=== PATIENT | female | born 1950 | race Caucasian/White ===

== ENCOUNTER 2016-10-02 12:35 | Emergency (ER) | payer MEDICARE ==
--- NOTE | 2016-10-02 14:39 | Emergency Department Record ---
History of Present Illness - General Chief Complaint: Headache Migraine Stated Complaint: MONTANO PAIN Time Seen by Provider: 10/02/16 14:32 Source: Patient Mode of Arrival: Ambulatory Limitations: No limitations - History of Present Illness Initial Comments: 66 yo female presents with 3 weeks of symptoms of pain in the left neck posteriorly with movement. She states it came on after kayaking. the pain is sharp and goes from the base of the skull down the neck to the right shoulder. She saw her PCP. She was prescribed Ativan. She saw her chiropractor as well. New has improved the symptoms. She has developed a numb feeling over the upper left anterior shoulder. 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 No vision changes. No rash. No prior neck surgery. MD Complaint: Headache, Other Onset/Timin -: Week(s) Onset Description: Gradual Location: Neck Severity: Mild Severity scale (1-10): 4 Quality: Aching Consistency: Constant, Intermittent Improves With: Nothing Worsens With: Sitting/standing Associated Symptoms: Other Treatments Prior to Arrival: None - Related Data Home Medications Medication Instructions Recorded Confirmed Last Taken Thyroid,Pork [[place] Thyroid] 60 mg PO DAILY tab 08/11/15 10/02/16 Unknown Previous Rx's Medication Instructions Recorded Diazepam [Valium] 5 mg PO Q8H #15 tab 10/02/16 Hydrocodone/Acetaminophen [Todd 1 each PO Q6H PRN #15 tablet 10/02/16 5-325 Tablet] Methylprednisolone [Medrol Dose 4 mg PO DAILY #1 tab.ds.pk 10/02/16 Pack] Allergies Allergy/AdvReac Type Severity Reaction Status Date / Time morphine [MORPHINE] Allergy Unknown Unverified 08/11/15 19:20 Sulfa (Sulfonamide Allergy Unknown Unverified 08/11/15 19:20 Antibiotics) [SULFA (SULFONAMIDE ANTIBIOTICS)] Travel Screening - Travel/Exposure Within Last 30 Days Have you traveled within the last 30 days?: No Review of Systems Constitutional: Denies: Chills, Fever, Weakness Eyes: Denies: Eye discharge ENT: Denies: Congestion, Throat pain Respiratory: Denies: Cough, Dyspnea, Wheezes Cardiovascular: Denies: Chest pain, Palpitations, Syncope Endocrine: Denies: Fatigue, Polydipsia, Polyuria Gastrointestinal: Denies: Abdominal pain, Diarrhea, Nausea, Vomiting Genitourinary: Denies: Dysuria, Urgency Musculoskeletal: Reports: Neck pain. Denies: Arthralgia, Back pain Skin: Denies: Bruising, Change in color, Rash Neurological: Reports: Headache, Numbness, Tingling. Denies: Abnormal gait, Confusion, Seizure, Vertigo, Weakness Psychiatric: Denies: Anxiety Hematological/Lymphatic: Denies: Anemia, Blood Clots, Easy bleeding, Easy bruising, Swollen glands Past Medical History - SOCIAL HISTORY Smoking Status: Never smoker Alcohol Use: Occassional Drug Use Detail:: Marijuana - RESPIRATORY Hx Respiratory Disorders: No - CARDIOVASCULAR Hx Cardio Disorders: No - NEURO Hx Neuro Disorders: No - GI Hx GI Disorders: No - Hx Genitourinary Disorders: No - ENDOCRINE Hx Endocrine Disorders: Yes Hx Thyroid Disease: Yes - MUSCULOSKELETAL Hx Musculoskeletal Disorders: Yes Hx Arthritis: Yes - PSYCH Hx Psych Problems: No - HEMATOLOGY/ONCOLOGY Hx Hematology/Oncology Disorders: No Family Medical History Any Significant Family History?: No Physical Exam - General General Appearance: Alert, Oriented x3, Cooperative, No acute distress Limitations: No limitations - Head Head exam: Atraumatic, Normal inspection - Eye Eye exam: Normal appearance, PERRL, EOMI. negative: Conjunctival injection, Periorbital swelling, Scleral icterus - ENT ENT exam: Normal exam, Mucous membranes moist Ear exam: Normal external inspection Nasal Exam: Normal inspection Mouth exam: Normal external inspection Teeth exam: Normal inspection Throat exam: Normal inspection - Neck Neck exam: Normal inspection, Tenderness, Other (The symptoms are reproducible with movement, improved with rest or still). negative: Full ROM (spasm of muscles with movement), Lymphadenopathy, Thyromegaly - Respiratory Respiratory exam: Normal lung sounds bilaterally. negative: Respiratory distress - Cardiovascular Cardiovascular Exam: Regular rate, Normal rhythm, Normal heart sounds Peripheral Pulses: 2+: Radial (R), Radial (L) - Rectal Rectal exam: Deferred - exam: Deferred - Extremities Extremities exam: Normal inspection, Full ROM, Normal capillary refill. negative: Joint swelling, Pedal edema, Tenderness - Back Back exam: Reports: Normal inspection, Full ROM. Denies: CVA tenderness (R), CVA tenderness (L), Muscle spasm, Paraspinal tenderness, Rash noted, Tenderness , Vertebral tenderness - Neurological Neurological exam: Alert, Motor sensory deficit, Normal gait, Oriented X3, Reflexes normal, Other (Administrative Supervisor, biceps, triceps intact, OK sign intact, sensation intact, CARLY intact) - Psychiatric Psychiatric exam: Normal affect, Normal mood. negative: Agitated, Anxious - Skin Skin exam: Dry, Intact, Normal color, Warm Course Vital Signs 10/02/16 14:14 Temperature 99.7 F H Pulse Rate 90 Respiratory 20 Rate Blood Pressure 167/95 Pulse Ox 97 - Reevaluation(s) Reevaluation #1: 10/02/16 15:[address] scan demonstrated moderate degenerative changes The patient has reproducible symptoms. No neuro deficits or neuro weakness by history She is stable for outpatient follow up. She has a PCP that has seen her for this making follow up reliable. We discussed home care close follow up with the PCP as she may need and MRI if not resolving. 10/02/16 17:36 Disposition Disposition: Discharge Clinical Impression: Cervical radicular pain Disposition: Home, Self-Care Condition: (1) Good Instructions: Cervical Radiculopathy (ED) Additional Instructions: Call your doctor tomorrow for close follow up and to review your ER visit Return if worse, weak, uncontrolled pain You may need a followup MRI if the symptoms continue Prescriptions: Diazepam [Valium] 5 mg PO Q8H #15 tab Hydrocodone/Acetaminophen [Todd 5-325 Tablet] 1 each PO Q6H PRN #15 tablet PRN Reason: Pain - General Methylprednisolone [Medrol Dose Pack] 4 mg PO DAILY #1 tab.ds.pk Forms: Patient Portal Access Time of Disposition: 15:00 Quality - Quality Measures Quality Measures: N/A - Blood Pressure Screening View Details: Yes Blood Pressure Classification: Pre-Hypertensive BP Reading Systolic Measurement: 138 Diastolic Measurement: 80 Screening for High Blood Pressure: < Pre-Hypertensive BP, F/U Documented > [ G8950] Pre-Hypertensive Follow-up Interventions: Referral to alternative/primary care provider.
[2016-10-02] MEDS ORDERED: METHYLPREDNISOLONE PF 125MG/VIAL IVP ONE (14:40)
[2016-10-02] MEDS ORDERED: KETOROLAC 30 MG/ML VIAL IVP ONE (14:40)
[2016-10-02] MEDS ORDERED: DIAZEPAM 5 MG/1 ML TUBX IVP ONE (14:40)
[2016-10-02] MEDS ORDERED: HYDROMORPHONE HCL 1 MG/ML CPJ IVP ONE (15:37)
[2016-10-02] MEDS ORDERED: ONDANSETRON HCL IV 4 MG/2 ML VIAL IVP ONE (15:37)
--- NOTE | 2016-10-04 07:37 | CT SCAN REPORT ---
EXAM: CT OF THE CERVICAL SPINE HISTORY: FALL. TECHNIQUE: Axial CT images of the cervical spine were obtained with coronal and sagittal reconstructions. Comparison: None. FINDINGS: Evaluation of the spinal canal contents is limited due to CT technique. The vertebral body height is preserved. Minor anterolisthesis of C4 on C5 and C5 on C6 likely secondary to advanced degenerative changes with facet arthropathy at these levels. Limited evaluation of the lung apices is unremarkable. Nodular changes to the thyroid. Correlate with function. IMPRESSION: NO CT EVIDENCE FOR ACUTE CERVICAL SPINE ABNORMALITY. MINOR ANTEROLISTHESIS OF C4 ON C5 AND C5 ON C6 LIKELY SECONDARY TO ADVANCED DEGENERATIVE CHANGES/FACET ARTHROPATHY. JOB NUMBER: [id number] MTDD
== END 2016-10-02 16:34 | disposition home or self-care (01) ==
LOC: ER 12:35
DX: M54.12 Radiculopathy, cervical region (principal); R51 Headache
CPT/HCPCS: 99284 ×2; 96374; 96375; 72125; J1885; J2405; J1170; J2930; J3360

== ENCOUNTER 2017-05-22 08:26 | Day surgery (SDC) | payer MEDICARE, OTHER ==
[2017-05-22] MEDS ORDERED: PROPOFOL 10 MG/ML VIAL IV ONE (08:27)
[2017-05-22] MEDS ORDERED: LIDOCAINE 2% MDV (20MG/ML) 20ML VIAL IV ONE (08:27)
--- NOTE | 2017-05-23 12:40 | Operative Note ---
DATE OF SURGERY: 05/22/2017 OPERATION: COLONOSCOPY to the cecum with cold biopsy forceps polypectomy x3. INDICATION: Colorectal cancer screening. The patient had previous colonoscopy 10 years ago by my associate who found sigmoid hyperplastic polyps. She returns at this time for screening. ANESTHESIA: Intravenous sedation was administered by the department of anesthesiology and included Diprivan titrated to effect. PROCEDURE: Following informed consent from this alert individual including a discussion of the risks and benefits of the procedure and an opportunity for the patient to ask questions, the patient was in the left lateral decubitus position. A digital rectal examination was performed. No abnormalities were noted. Following this, the Olympus [id number] video colonoscope was inserted into the rectum without resistance. The rectal mucosa had a normal appearance with normal folds and distensibility. The colonoscope was advanced up through the bowel to the level of the cecum without much difficulty. Throughout the bowel the mucosa appeared normal, the folds were normal, and the bowel was fairly well distensible. The cecum was defined by noting the appendiceal orifice and ileocecal valve. The terminal ileum was cannulated and found to be unremarkable. Retroflexion in the cecum was endoscopically normal. From the base of the cecum, the colonoscope was then withdrawn. No abnormalities were noted until the sigmoid colon was reached. Within the sigmoid colon, there were 3 hyperplastic-appearing polyps noted each removed with cold biopsy forceps. No other changes are appreciated. Retroflexion in the rectum was endoscopically normal. The instrument was straightened and removed. The patient tolerated the procedure well and was returned to the recovery area in stable condition. IMPRESSION: Three diminutive sigmoid polyps removed with biopsy forceps which appear hyperplastic in type. The remainder of the examination was unremarkable. RECOMMENDATIONS: Further recommendations will be forthcoming pending results of pathology. Followup will also be with Dr. Mejia Batres. As always, thank you for allowing me to participate in the care of your patient. CC: Mejia DO
== END 2017-05-22 10:30 | disposition home or self-care (01) ==
LOC: HOP 08:26
PROVIDERS: ATTEND Internal Medicine Gastroenterology
DX: Z12.11 Encounter for screening for malignant neoplasm of colon (principal); K63.5 Polyp of colon; Z87.19 Personal history of other diseases of the digestive system; E03.9 Hypothyroidism, unspecified

== ENCOUNTER 2019-01-20 08:18 | Emergency (ER) | payer MEDICARE, OTHER ==
[2019-01-20] MEDS ORDERED: PROPARACAINE HCL OPTH 15ML BTL OPTH ONE (08:43)
--- NOTE | 2019-01-20 09:03 | Emergency Department Record ---
History of Present Illness - General Chief complaint: Eye Problem Stated complaint: EYE PAIN Time Seen by Provider: 01/20/19 08:35 Source: Patient, RN notes reviewed Mode of Arrival: Ambulatory - History of Present Illness Initial comments: right eye watering and she took her contacts out 2 days ago and she has a slight headache and family history macular degeneration. Patient has photophobia. chief complaint: Eye redness Onset/Timin -: Hour(s) Onset Description: Gradual, Awoke with symptoms Location: Right eye Place: Home If Injury: None Eye Symptoms: Burning, Foreign body sensation, Pain Severity: Moderate Severity scale (1-10): 8 If Pain, Quality: Other Consistency: Constant Associated Symptoms: None Treatments Prior to Arrival: None - Related Data Visual acuity (L) = 20/: 25 Visual acuity (R) = 20/: 20 With correction: Yes Previous Rx's Medication Instructions Recorded Ciprofloxacin HCl 0.3% Drops 1 drop OP ASDIR #1 btl 01/20/19 [Ciprofloxacin HCl] Allergies Allergy/AdvReac Type Severity Reaction Status Date / Time morphine [MORPHINE] Allergy Unknown VOMITING Verified 01/20/19 08:29 Sulfa (Sulfonamide Allergy Unknown HIVES Verified 01/20/19 08:29 Antibiotics) [SULFA (SULFONAMIDE ANTIBIOTICS)] Travel Screening - Travel/Exposure Within Last 30 Days Have you traveled within the last 30 days?: No Review of Systems Reviewed: No additional complaints except as noted below Constitutional: Reports: As per HPI. Denies: Chills, Fever, Malaise, Night sweats, Weakness, Weight change Eyes: Reports: As per HPI, Eye discharge, Photophobia. Denies: Eye pain, Vision change ENT: Reports: As per HPI. Denies: Congestion, Dental pain, Ear pain, Epistaxis, Hearing loss, Throat pain Respiratory: Reports: As per HPI. Denies: Cough, Dyspnea, Hemoptysis, Stridor, Wheezes Cardiovascular: Reports: As per HPI. Denies: Arrhythmia, Chest pain, Dyspnea on exertion, Edema, Murmurs, Orthopnea, Palpitations, Paroxysmal nocturnal dyspnea, Rheumatic Fever, Syncope Endocrine: Reports: As per HPI. Denies: Fatigue, Heat or cold intolerance, Polydipsia, Polyuria Gastrointestinal: Reports: As per HPI. Denies: Abdominal pain, Constipation, Diarrhea, Hematemesis, Hematochezia, Melena, Nausea, Vomiting Genitourinary: Reports: As per HPI. Denies: Abnormal menses, Discharge, Dyspareunia, Dysuria, Frequency, Hematuria, Incontinence, Retention, Urgency Musculoskeletal: Reports: As per HPI. Denies: Arthralgia, Back pain, Gout, Joint swelling, Myalgia, Neck pain Skin: Reports: As per HPI. Denies: Bruising, Change in color, Change in hair/nails, Lesions, Pruritus, Rash Neurological: Reports: As per HPI. Denies: Abnormal gait, Confusion, Headache, Numbness, Paresthesias, Seizure, Tingling, Tremors, Vertigo, Weakness Psychiatric: Reports: As per HPI. Denies: Anxiety, Auditory hallucinations, Depression, Homicidal thoughts, Suicidal thoughts, Visual hallucinations Hematological/Lymphatic: Reports: As per HPI. Denies: Anemia, Blood Clots, Easy bleeding, Easy bruising, Swollen glands Past Medical History - SOCIAL HISTORY Smoking Status: Never smoker - RESPIRATORY Hx Respiratory Disorders: No - CARDIOVASCULAR Hx Cardio Disorders: No - NEURO Hx Neuro Disorders: No - GI Hx GI Disorders: No - Hx Genitourinary Disorders: Yes - ENDOCRINE Hx Endocrine Disorders: Yes Hx Thyroid Disease: Yes - MUSCULOSKELETAL Hx Musculoskeletal Disorders: Yes Hx Arthritis: Yes - PSYCH Hx Psych Problems: No - HEMATOLOGY/ONCOLOGY Hx Hematology/Oncology Disorders: No Family Medical History Any Significant Family History?: Yes Family Hx Comment (NOT TO BE USED IN PLACE OF ITEMS BELOW): mother- sclerodema Hx Cancer: Grandparents *Cancer Comment: grandmother-multiple cancer, grandfather-prostate Hx Heart Disease: Mother *Heart Comment: sclerodema Physical Exam - General General Appearance: Alert, Oriented x3, Cooperative, No acute distress - Head Head exam: Normal inspection - Eye Eye exam: Normal appearance, PERRL, Conjunctival injection, EOMI, Other (flurecein uptake central spot abrasion and at 11 o'clock white discharge c oncerned about developing ulcer ) Pupils: Normal accommodation Visual acuity (L) = 20/: 25 Visual acuity (R) = 20/: 20 With correction: Yes - ENT ENT exam: Normal exam, Mucous membranes moist, Normal external ear exam, Normal orophraynx, TM's normal bilaterally Ear exam: Normal external inspection. negative: External canal tenderness Nasal Exam: Normal inspection. negative: Discharge, Sinus tenderness Mouth exam: Normal external inspection, Tongue normal Teeth exam: Normal inspection. negative: Dental caries Throat exam: Normal inspection. negative: Tonsillar erythema, Tonsillar exudate - Neck Neck exam: Normal inspection, Full ROM. negative: Tenderness - Respiratory Respiratory exam: Normal lung sounds bilaterally. negative: Respiratory distress - Cardiovascular Cardiovascular Exam: Regular rate, Normal rhythm, Normal heart sounds - GI/Abdominal GI/Abdominal exam: Soft, Normal bowel sounds. negative: Tenderness - Rectal Rectal exam: Deferred - exam: Deferred - Extremities Extremities exam: Normal inspection, Full ROM, Normal capillary refill. negative: Tenderness - Back Back exam: Reports: Normal inspection, Full ROM. Denies: Muscle spasm, Rash noted, Tenderness - Neurological Neurological exam: Alert, Normal gait, Oriented X3, Reflexes normal - Psychiatric Psychiatric exam: Normal affect, Normal mood - Skin Skin exam: Dry, Intact, Normal color, Warm Course Vital Signs 01/20/19 08:24 Temperature 98.9 F Pulse Rate 73 Respiratory 20 Rate Blood Pressure 157/99 Pulse Ox 97 - Reevaluation(s) Reevaluation #1: slit lamp exam central punctate abrasion with flurescein uptake and white spote 11O'Clock position. alcaine took her discomfort away. 01/20/19 09:08 Disposition Clinical Impression: Corneal ulcer of right eye Disposition: Home, Self-Care Condition: (1) Good Instructions: Corneal Ulcer (ED) Additional Instructions: follow up with Dr Joe's office tomorrow call his office at 8:30 am and tell them seen in Ed at [facility] and the Emergency Dr wants her seen on monday. Prescriptions: Ciprofloxacin HCl 0.3% Drops [Ciprofloxacin HCl] 1 drop OP ASDIR #1 btl Time of Disposition: 09:17 Quality - Quality Measures Quality Measures: N/A - Blood Pressure Screening Does Patient Have Any of the Following: No Blood Pressure Classification: Hypertensive Reading Systolic Measurement: 157 Diastolic Measurement: 99 Screening for High Blood Pressure: < Pre-Hypertensive BP, F/U Documented > [G8950] Pre-Hypertensive Follow-up Interventions: Referral to alternative/primary care provider.
== END 2019-01-20 09:45 | disposition home or self-care (01) ==
LOC: ER 08:18
DX: H16.001 Unspecified corneal ulcer, right eye (principal); H53.141 Visual discomfort, right eye; R51 Headache
CPT/HCPCS: 99283